=== PATIENT | male | born 1960 | race Caucasian/White ===

== ENCOUNTER 2020-04-22 14:54 | Emergency (ER) | payer OTHER, SELFPAY ==
[2020-04-22] MEDS ORDERED: CEPHALEXIN 500 MG CAP As Ordered ONE (20:05)
[2020-04-22] MEDS ORDERED: CEPHALEXIN 500 MG CAP ONE (20:05)
[2020-06-05 12:29] LABS: APPEARANCE, URINE MANUAL CLOUDY (CLEAR); BACTERIA, URINE LARGE AMOUNT; BILIRUBIN, URINE MANUAL NEGATIVE (NEGATIVE); BLOOD URINE MANUAL NEGATIVE (NEGATIVE); COLOR, URINE MANUAL YELLOW (YELLOW); GLUCOSE, URINE (UA) MANUAL NEGATIVE (NEGATIVE); HYALINE CAST, URINE NONE SEEN /lpf (0-1); KETONE, URINE MANUAL NEGATIVE (NEGATIVE); LEUKOCYTE ESTERASE, URINE MAN POSITIVE (NEGATIVE); NITRITE, URINE MANUAL POSITIVE (NEGATIVE); PROTEIN, URINE MANUAL NEGATIVE (NEGATIVE); RBC, URINE 0-1 /hpf (0-3); SPECIFIC GRAVITY,URINE MANUAL 1.025 (1.002-1.035); SQUAMOUS EPITHELIAL CELL URINE SMALL AMOUNT /hpf (SMALL AMT); UROBILINOGEN, URINE MANUAL NORMAL (NORMAL); WBC, URINE 40-50 /hpf (0-3)
[2020-06-05 12:30] LABS: MUCUS, URINE SMALL AMOUNT (NEGATIVE)
== END 2020-04-22 21:30 | disposition home or self-care (01) ==
LOC: M ED 14:54
DX: M71.38 Other bursal cyst, other site (principal); M62.81 Muscle weakness (generalized); N39.0 Urinary tract infection, site not specified; M51.37 Other intervertebral disc degeneration, lumbosacral region; M12.88 Other specific arthropathies, not elsewhere classified, other specified site; M48.061 Spinal stenosis, lumbar region without neurogenic claudication

== ENCOUNTER → 2021-10-05 | Outpatient (CLI) | payer OTHER | LOC: M RAD 10:16 | PROVIDERS: ATTEND Nurse Practitioner Family | DX: E80.7 Disorder of bilirubin metabolism, unspecified (principal); R18.8 Other ascites; K80.20 Calculus of gallbladder without cholecystitis without obstruction; K82.8 Other specified diseases of gallbladder; K76.89 Other specified diseases of liver ==

== ENCOUNTER → 2022-07-10 | Outpatient (CLI) | payer OTHER | LOC: M WHC 15:09 | PROVIDERS: ATTEND Nurse Practitioner Family | DX: Z12.31 Encounter for screening mammogram for malignant neoplasm of breast (principal); D48.61 Neoplasm of uncertain behavior of right breast | CPT/HCPCS: 77066; G0279 ==